=== PATIENT | female | born 1965 | race Two or more races ===

== ENCOUNTER 2023-07-11 09:49 | Emergency (ER) | payer MEDICAID, OTHER ==
[~2023-07-11] VITALS: Ht 152.4 cm; Wt 59.0 kg
[2023-07-11 13:03] VITALS: BP 144/78; PULSE 81; RESP 18; O2SAT 98
[2023-07-11] MEDS ORDERED: KETOROLAC TROMETH 30 MG/ML 1ML VIAL IM ONE (14:30)
[2023-07-11] MEDS ORDERED: ACETAMINOPHEN 500 MG TAB PO ONE (14:30)
[2023-07-11 15:22] VITALS: TEMP 97.4
[2023-07-11] MEDS ORDERED: ACET500T58 PO (15:23)
== END 2023-07-11 15:32 | disposition home or self-care (01) ==
LOC: ER 09:49
DX: R51.9 Headache, unspecified (principal); Z79.899 Other long term (current) drug therapy; X50.1XXA Overexertion from prolonged static or awkward postures, initial encounter; Y93.89 Activity, other specified; Y92.89 Other specified places as the place of occurrence of the external cause; Y99.8 Other external cause status
CPT/HCPCS: 70450; 82962; 96372; 99285; J1885